=== PATIENT | male | born 1995 | race Caucasian/White ===

== ENCOUNTER 2020-09-04 18:39 | Emergency (ER) | payer BC, OTHER, SELFPAY ==
[~2020-09-04] VITALS: Ht 180.3 cm; Wt 92.0 kg
[2020-09-04 21:13] VITALS: BP 156/79
== END 2020-09-04 21:15 | disposition home or self-care (01) ==
LOC: M ED 18:39
DX: J02.9 Acute pharyngitis, unspecified (principal); F17.210 Nicotine dependence, cigarettes, uncomplicated
CPT/HCPCS: 87880; 99284; U0003

== ENCOUNTER 2021-05-22 19:52 | Emergency (ER) | payer OTHER ==
[~2021-05-22] VITALS: Ht 180.3 cm; Wt 80.0 kg
[2021-05-22 19:53] VITALS: BP 132/72
--- NOTE | 2021-05-22 22:26 | REPVR ---
PROCEDURE INFORMATION: Exam: XR Right Hand Exam date and time: 05/22/2021 8:22 PM Age: 26 years old Clinical indication: Pain; Hand; Right; Additional info: Shut in car door. Pain and swelling. TECHNIQUE: Imaging protocol: XR Right hand. Views: 3 or more views. COMPARISON: No relevant prior studies available. FINDINGS: Bones/joints: There is no fracture or dislocation. The joint spaces are preserved. No arthropathy is noted. Soft tissues: There is soft tissue swelling involving the right hand. No radiopaque foreign body is noted. IMPRESSION: No fracture or dislocation of the right hand. Electronically signed by: Navid Cifuentes On 05/22/2021 22:26:02 PM
== END 2021-05-22 22:29 | disposition left against medical advice (07) ==
LOC: M ED 19:52
DX: Z53.21 Procedure and treatment not carried out due to patient leaving prior to being seen by health care provider (principal)

== ENCOUNTER 2021-07-09 09:21 | Emergency (ER) | payer OTHER ==
[~2021-07-09] VITALS: Ht 172.7 cm; Wt 77.6 kg
[2021-07-09] MEDS ORDERED: IBUP-1022 PO (10:34)
[2021-07-09] MEDS ORDERED: PENI500T PO (10:34)
[2021-07-09] MEDS ORDERED: PENICILLIN V POTASSIUM 500 MG TAB PO ONE (10:35)
[2021-07-09] MEDS ORDERED: IBUPROFEN 600MG TAB PO ONE (10:35)
[2021-07-09] MEDS ORDERED: ACETAMINOPHEN TAB 650MG DOSE (2X325MG) PO ONE (10:35)
[2021-07-09 10:55] VITALS: BP 119/77
== END 2021-07-09 11:00 | disposition home or self-care (01) ==
LOC: M ED 09:21
DX: H92.02 Otalgia, left ear (principal); K02.9 Dental caries, unspecified; F17.200 Nicotine dependence, unspecified, uncomplicated

== ENCOUNTER 2023-04-21 23:02 | Emergency (ER) | payer OTHER ==
[~2023-04-21] VITALS: Ht 172.7 cm; Wt 79.5 kg
[~2023-04-21 23:02] MED LIST: IBUP-1022 PO; PENI500T PO
[2023-04-22 01:13] VITALS: BP 118/77; TEMP 97.8; O2SAT 96
[2023-04-22] MEDS ORDERED: DALBAVANCIN 1,500 MG in D5W 250 ML IV ONE (01:40)
[2023-04-22 02:41] LABS: BASO % 0.4 % (0.0-1.0); HEMATOCRIT 36.6 % (42.0-52.0); HEMOGLOBIN 12.1 g/dl (13.5-17.5); LYMPH # 0.7 10^3/uL (1.5-5.0); LYMPH % 7.9 % (24.0-44.0); MEAN CORPUSCULAR HGB CONC 33.1 g/dl (32.0-36.5); MEAN CORPUSCULAR VOLUME 87.8 fl (80.0-96.0); MONO # 0.8 10^3/uL (0.0-0.8); MONO % 9.3 % (2.0-8.0); NEUTROPHILS # 6.9 10^3/uL (1.5-8.5); NEUTROPHILS % 81.9 % (36.0-66.0); PLATELET COUNT, AUTOMATED 238 10^3/uL (150-450); RED BLOOD COUNT 4.17 10^6/uL (4.30-6.10); WHITE BLOOD COUNT 8.4 10^3/uL (4.0-10.0)
[2023-04-22 03:05] LABS: BLOOD UREA NITROGEN 12 MG/DL (9-23); CALCIUM LEVEL 8.4 MG/DL (8.5-10.1); CARBON DIOXIDE LEVEL 25 MMOL/L (20-31); CHLORIDE LEVEL 99 MMOL/L (98-107); CREATININE FOR GFR 0.67 MG/DL (0.70-1.30); GLOMERULAR FILTRATION RATE > 60.0 (>60); GLUCOSE, FASTING 118 MG/DL (60-100); POTASSIUM SERUM 4.1 MMOL/L (3.5-5.1); SODIUM LEVEL 131 MMOL/L (136-145)
== END 2023-04-22 03:18 | disposition home or self-care (01) ==
LOC: M ED 23:02
DX: L03.90 Cellulitis, unspecified (principal); F17.200 Nicotine dependence, unspecified, uncomplicated
CPT/HCPCS: 80047; 80048; 85025; 86140; 87040; 96374; 99284; J0875

== ENCOUNTER → 2024-04-09 | Outpatient (CLI) | payer OTHER | LOC: M RAD 12:09 | PROVIDERS: ATTEND Physician Assistant | DX: S99.921A Unspecified injury of right foot, initial encounter (principal); X58.XXXA Exposure to other specified factors, initial encounter; Y92.9 Unspecified place or not applicable; Y93.9 Activity, unspecified; Y99.9 Unspecified external cause status ==